=== PATIENT | female | born 1960 | race Caucasian/White ===

== ENCOUNTER 2025-03-24 20:46 | Emergency (ER) | payer OTHER, SELFPAY ==
[2025-03-24 20:49] VITALS: BP 116/84
[2025-03-24 21:58] VITALS: BMI 45.2
--- NOTE | 2025-03-24 22:55 | ED.GENMED ---
History of Present Illness
General
Chief Complaint: Musculo-Skeletal Complaint
Source: patient and spouse
Time Seen by Provider: 03/24/25 22:37
History of Present Illness
History of Present Illness:
This patient is a 64-year-old female presents emergency department with complaints of bilateral neck discomfort that started when she woke up this morning. She says it feels like a 'pulled muscle', also thought to be potentially arthritis which she
does suffer from. She gets this from time to time, usually relieved with Advil and Biofreeze. However, and taking Advil and Biofreeze today it did not get better which prompted her to go to the urgent care. The pain is worse when she turns her
head to the side. It is nonradiating. At the urgent care she was noted to be tachycardic. She had an ECG done which was unremarkable and she was referred to the ER. Patient denies chest pain, shortness of breath, nausea, vomiting, numbness,
tingling, focal weakness, fever, chills. She denies recent trauma or falls, recent chiropractor visits, recent hyper extension of neck. She does note a recent URI for which she received an inhaler which has improved her.
Past History
Past History
ED Past Medical History: None
ED Past Surgical History: Gynecological, Orthopedic and Other (Hemorrhoid)
Social History
Tobacco: Non-smoker
Alcohol: Occasional
Drug: None
Personal:
Living: with family
Employment: Employed
Phy Exam
Physical Exam
Physical Exam:
GENERAL: Alert , in no apparent distress
EYE: pupils equal and reactive, EOMI, no nystagmus
NECK: Supple, no significant adenopathy, no midline tenderness to palpation. Nods yes and no easily. Describes discomfort at the bilateral posterior neck area without skin findings, swelling, or other abnormalities..
ENT: o/p clr, mmm.
CARDIAC: Regular rate and rhythm .
LUNGS: Clear breath sounds bilaterally, no acute respiratory distress, no wheezes/rales/rhonchi
ABDOMEN: Soft, without focal tenderness, no r/g, no cvat
NEUROLOGICAL: Alert and oriented, no focal neuro deficits, motor 5 out of 5, sensory intact, cranial nerves II through XII intact
SKIN: Warm and dry, skin intact.
MUSCULOSKELETAL: No edema, well perfused.
PSYCH: Normal and appropriate interaction.
Course
Vital Signs
Initial and Last Documented VS:
Initial Vital Signs
Temp Pulse Resp BP Pulse Ox
98.6 F 112 18 116/84 99
03/24/25 20:49 03/24/25 20:49 03/24/25 20:49 03/24/25 20:49 03/24/25 20:49
Last Documented Vital Signs
Temp Pulse Resp BP Pulse Ox
98.6 F 95 19 116/84 95
03/24/25 20:49 03/24/25 22:00 03/24/25 22:00 03/24/25 20:49 03/24/25 22:00
*Critical Care Note
Total Time (30-74mins, 75-104mins- exclusive of procedures): Not Applicable
Update Note
Update Note:
Patient presents to the Emergency Department with ___neck pain
Number and Complexity of Problems Addressed at the Encounter
� Chronic conditions affecting care:
� Acute Exacerbation and/or Progression of Chronic Illness:
� Differential Diagnosis includes: But not limited to muscular strain, dissection, arthritis, etc. etc.
Amount and/or Complexity of Data to be Reviewed and Analyzed
� I performed an independent evaluation of and my interpretation is:
EKG:
CT:
Xrays:
Laboratory Studies:
Other:
� Review of other/old records reveals: Review of ECG from urgent care unremarkable
� Clinical information was obtained by an independent historian: who is bedside
� Prescriptions/Medications Considered but not given:
� Further testing considered but not performed:
Risk of Complications and/or Morbidity or Mortality of Patient Management
� Social determinants of health affecting care:
� Discussion with other providers (PCP, Hospitalists, Consultants, etc):
� Escalation of care including admission/observation vs risk of discharge considered: Patient eager to go home, feels that urgent care 'overreacted' regarding tachycardia. She is no longer tachycardic here. She denies any chest
pain, dizziness, palpitations, etc. Her physical exam here in association with her history is not suspicious for dissection, stroke, fracture, or other serious etiology. Suspect muscular etiology. Discussed with patient portance of follow-up and
reasons return to the ER.
ED Attending Note
-
Portions of this chart may have been created with voice recognition software.� Occasional wrong word or��sound alike� substitutions may have occurred due to the inherent limitations of voice recognition software.
Discharge Plan
Departure
Date of Disposition: 03/24/25
Time of Disposition: 23:00
Patient with high blood pressure during this ER visit?: Yes
Condition: Good
Instructions: Neck pain - ED discharge instructions, BLOOD PRESSURE
Prescriptions:
New
cyclobenzaprine 10 mg tablet
10 mg PO BID PRN (Reason: pain/spasm) Qty: 9 0RF
Activity Restrictions/Additional Instructions:
IF YOU DEVELOP INCREASING NEW OR PERSISTENT PAIN, NUMBNESS, TINGLING, HEADACHE, DIZZINESS, SWELLING, FEVER, CHEST PAIN, PALPITATIONS, OR OTHER WORRISOME SIGNS, PLEASE RETURN TO THE ER IMMEDIATELY.
Interventions
Interventions:
*Risk Screen - Suicide Last Done: 03/24/25 20:49
*General Assessment Last Done: 03/24/25 20:49
*ED COVID-19 Vaccine History Last Done: 03/24/25 20:49
Discharge Date and Time
Print Language: MAURITIAN
[2025-03-24] MEDS: VALIUM 5 MG PO (23:06)
[2025-03-24] MEDS: TORADOL 15 MG IM (23:06)
[2025-03-24 23:09] VITALS: BP 116/75
== END 2025-03-24 23:17 | disposition home or self-care (01) ==
LOC: EMR 20:46
PROVIDERS: EMERGENCY PHYSICIAN Emergency Medicine; FAMILY PHYSICIAN Family Medicine
DX: M54.2 Cervicalgia (principal); R03.0 Elevated blood-pressure reading, without diagnosis of hypertension; Z87.19 Personal history of other diseases of the digestive system
CPT/HCPCS: 99282; 96372